=== PATIENT | male | born 1995 | race African-American/Black ===

== ENCOUNTER 2020-03-18 13:12 | Emergency (ER) | payer OTHER ==
[~2020-03-18] VITALS: Ht 188 cm; Wt 79.8 kg
[~2020-03-18 13:12] MED LIST: IBUPROFEN 600600 M1 PO; NORCO 5-325 TA1 EACH PO
[2020-03-18 13:13] VITALS: BP 141/93
[2020-03-18] MEDS ORDERED: TIZANIDINE4 MG/1 TA1 PO (13:27)
[2020-03-18] MEDS ORDERED: PREDNISONE 20 M20 MG PO (13:27)
== END 2020-03-18 13:47 | disposition home or self-care (01) ==
LOC: ER 13:12
DX: S39.012A Strain of muscle, fascia and tendon of lower back, initial encounter (principal); F17.210 Nicotine dependence, cigarettes, uncomplicated; X58.XXXA Exposure to other specified factors, initial encounter; Y93.89 Activity, other specified; Y92.89 Other specified places as the place of occurrence of the external cause; Y99.8 Other external cause status

== ENCOUNTER 2020-12-13 14:11 | Emergency (ER) | payer OTHER ==
[~2020-12-13] VITALS: Ht 190.5 cm; Wt 81.7 kg
[~2020-12-13 14:11] MED LIST changes: +PREDNISONE 20 M20 MG PO; +TIZANIDINE4 MG/1 TA1 PO
[2020-12-13 14:15] VITALS: BP 130/72
[2020-12-13] MEDS ORDERED: BACTRIM DS TAB1 EAC1 PO (14:27)
== END 2020-12-13 14:50 | disposition home or self-care (01) ==
LOC: ER 14:11
DX: L02.416 Cutaneous abscess of left lower limb (principal); F17.210 Nicotine dependence, cigarettes, uncomplicated